=== PATIENT | female | born 1985 | race Caucasian/White ===

== ENCOUNTER 2020-08-28 07:56 | Emergency (ER) | payer OTHER ==
--- NOTE | 2020-08-28 08:41 | ED Physician Documentation ---
History of Present Illness - Stated complaint Stated Complaint: STOMACH PX - Chief complaint Chief Complaint: Abd Pain - History obtained from History obtained from: Patient - Additonal information Additional information: 35yF p/w hematuria, increased frequency a/w suprapubic nonradiating aching constant gradual onset abd pain X 2 days, better with azo pills. denies fevers, back pain, nausea, or other symptoms. LMP 2/9. Review of Systems Ten Systems: 10 systems reviewed and negative Constitutional: denies: Fever, Chills GI: reports: Abdominal Pain : reports: Dysuria, Frequency PD PAST MEDICAL HISTORY - Past Surgical History Past Surgical History: No - Present Medications Home Medications: Ambulatory Orders Medication Instructions Recorded Confirmed Nitrofurantoin Monohyd/M-Cryst 100 mg PO BID 5 Days #10 tab 08/28/20 [Macrobid 100 mg Capsule] - Allergies Allergies/Adverse Reactions: Allergies Allergy/AdvReac Type Severity Reaction Status Date / Time No Known Drug Allergies Allergy Verified 08/28/20 08:11 - Social History Does the pt smoke?: No Smoking Status: Never smoker Does the pt drink ETOH?: Yes Does the pt have substance abuse?: No - Immunizations Immunizations are current?: Yes PD ED PE NORMAL - Vitals Vital signs reviewed: Yes - General General: Alert and oriented X 3, No acute distress, Well developed/nourished - HEENT HEENT: Atraumatic, PERRL, EOMI - Cardiac Cardiac: RRR - Respiratory Respiratory: No respiratory distress, Clear bilaterally - Abdomen Abdomen: Non tender, Non distended, Other (discomfort to suprapubic palpation) - Female Female : Deferred - Rectal Rectal: Deferred - Back Back: No CVA TTP - Derm Derm: Normal color - Extremities Extremities: No deformity - Neuro Neuro: Alert and oriented X 3 Results - Vitals Vitals: Vital Signs - 24 hr 08/28/20 08/28/20 08:07 08:48 Temperature 36.5 C Heart Rate 86 82 Respiratory 15 16 Rate Blood Pressure 120/89 H 129/84 H O2 Saturation 99 99 Oxygen O2 Source Room air PD MEDICAL DECISION MAKING - ED course ED course: 35yF presents with uncomplicated uti. bedside sono performed with mild urinary bladder wall thickening. return precautions given. pt will take abx and f/u with her pmd. Departure - Departure Disposition: 01 Home, Self Care Clinical Impression: UTI (urinary tract infection), Abdominal pain Condition: Good Instructions: ED UTI Cystitis Female Prescriptions: Nitrofurantoin Monohyd/M-Cryst [Macrobid 100 mg Capsule] 100 mg PO BID 5 Days #10 tab Comments: You were seen in the emergency department for UTI. Take antibiotics as prescribed. return for new or worsening symptoms or other concerns. follow up with your primary doctor. Discharge Date/Time: 08/28/20 08:48
[2020-08-28 08:49] VITALS: BP 129/84
== END 2020-08-28 08:48 | disposition home or self-care (01) ==
LOC: ED 07:56
DX: N39.0 Urinary tract infection, site not specified (principal); R31.9 Hematuria, unspecified
CPT/HCPCS: 80053; 81001; 81003; 81025; 83690; 85025; 87086; 99283; 99284

== ENCOUNTER 2021-07-07 21:43 | Emergency (ER) | payer OTHER ==
[2021-07-07 21:52] VITALS: BP 137/90
--- NOTE | 2021-07-07 21:56 | ED Physician Documentation ---
PD HPI URI - Stated complaint Stated Complaint: SORE THROAT,CHILLS,COUGH - Chief complaint Chief Complaint: General - Additional information Additional information: Patient [id number] female presenting with URI symptoms. Sick since last . Cough, congestion, fever chills, sore throat. Reports close contact with an individual who was recently diagnosed with the novel coronavirus. Reports all symptoms have resolved with the exception of her sore throat and upper airway congestion. Review of Systems Ten Systems: 10 systems reviewed and negative Constitutional: reports: Fever, Chills, Fatigue Eyes: denies: Loss of vision Ears: denies: Loss of hearing, Ear pain Nose: reports: Rhinorrhea / runny nose Throat: reports: Sore throat. denies: Dental pain / toothache Cardiac: denies: Chest pain / pressure Respiratory: reports: Cough. denies: Dyspnea GI: denies: Nausea, Vomiting PD PAST MEDICAL HISTORY - Past Surgical History Past Surgical History: No - Present Medications Home Medications: Ambulatory Orders Medication Instructions Recorded Confirmed Nitrofurantoin Monohyd/M-Cryst 100 mg PO BID 5 Days #10 tab 08/28/20 [Macrobid 100 mg Capsule] Levonorgestrel-Ethin Estradiol 07/07/21 [[place]-28 Tablet] - Allergies Allergies/Adverse Reactions: Allergies Allergy/AdvReac Type Severity Reaction Status Date / Time No Known Drug Allergies Allergy Verified 07/07/21 21:56 - Social History Does the pt smoke?: No Smoking Status: Never smoker Does the pt drink ETOH?: Yes Does the pt have substance abuse?: No - Immunizations Immunizations are current?: Yes PD ED PE NORMAL - Vitals Vital signs reviewed: Yes - General General: Alert and oriented X 3 - HEENT HEENT: Atraumatic, PERRL, Ears normal, Moist mucous membranes, Pharynx benign, Dentition benign - Neck Neck: Supple, no meningeal sign, No bony TTP, No JVD, No bruit - Cardiac Cardiac: RRR, No gallop - Respiratory Respiratory: No respiratory distress, Clear bilaterally - Derm Derm: Normal color - Extremities Extremities: No deformity - Neuro Neuro: Alert and oriented X 3, No motor deficit Results - Vitals Vitals: Vital Signs - 24 hr 07/07/21 21:46 Temperature 36.3 C L Heart Rate 70 Respiratory 18 Rate Blood Pressure 137/90 H O2 Saturation 98 Oxygen O2 Source Room air PD MEDICAL DECISION MAKING - ED course ED course: Patient is a 36-year-old female presenting to the emergency department with URI symptoms ongoing x5-6 days. Known contact with individual COVID-positive. Reported full Moderna vaccination earlier in the year. COVID swab taken and pending at this time. Given Decadron for pharyngitis. Encouraged ongoing quarantine per CDC guidelines. Encourage careful follow-up with primary care return to the emergency department as needed. Departure - Departure Disposition: Home, Self Care Clinical Impression: URI (upper respiratory infection), Exposure to COVID-19 virus Instructions: ED URI Viral Comments: Thank you for allowing us to care for today at [facility]. The COVID swab obtained today will take a few days to results. To be contacted with these results as soon as possible. Please stay well-hydrated and get plenty of rest. The medications you have been using at home including Motrin, Tylenol, Cepacol are excellent to help with your symptoms. Please do follow-up with your primary care doctor soon as you are able. If it anytime you have any new or worsening symptoms please not hesitate to return to the emergency department.
[2021-07-07] MEDS ORDERED: CHERRY SYRUP 10 ML UDC PO ONE (22:06)
[2021-07-07] MEDS ORDERED: DEXAMETHASONE 10 MG/ML VIAL PO STA (22:06)
== END 2021-07-07 22:26 | disposition home or self-care (01) ==
LOC: ED 21:43
DX: U07.1 COVID-19 (principal); J06.9 Acute upper respiratory infection, unspecified
CPT/HCPCS: 87275; 87276; 87635; 99282; 99283; A9270

== ENCOUNTER 2021-10-21 09:01 | Day surgery (SDC) | payer OTHER ==
[2021-10-21] MEDS ORDERED: CEFAZOLIN SODIUM IN 0.9 % NACL 2 GM/50 ML BAG IV ONE (09:13)
[2021-10-21 09:22] LABS: HCG UR QUAL NEGATIVE
[2021-10-21] MEDS ORDERED: LACTATED RINGERS 1,000 ML IV ONE ×2 (09:30→11:59)
--- NOTE | 2021-10-21 09:45 | ANESTHESIA ---
Pre-Anesthesia VS, & Labs - Diagnosis pelvic wall mass or hernia - Procedure Excision Pelvic wall mass Vital Signs: Temp Pulse Resp BP Pulse Ox 36.9 C 78 20 135/82 H 98 10/21/21 09:11 10/21/21 09:11 10/21/21 09:11 10/21/21 09:11 10/21/21 09:11 Height: 5 ft 5 in Weight (kg): 61 kg Body Mass Index: 22.4 BMI Classification: Healthy weight - NPO >8 hours - Is Patient ?: No - Lab Results Lab results reviewed: No Home Medications and Allergies Home Medications: Ambulatory Orders Doxycycline Hyclate 100 mg PO DAILY 09/24/21 Levonorgestrel-Ethin Estradiol [[place]-28 Tablet] 1 tab PO DAILY 07/07/21 Doxycycline Hyclate 100 mg PO DAILY 09/24/21 Allergies/Adverse Reactions: Allergies Allergy/AdvReac Type Severity Reaction Status Date / Time No Known Drug Allergies Allergy Verified 07/07/21 21:56 Anes History & Medical History - Anesthetic History Anesthesia Complications: reports: No previous complications Family history of Anesthesia Complications: Denies Family history of Malignant Hyperthermia: Denies - Medical History Cardiovascular: reports: None Pulmonary: reports: None Gastrointestinal: reports: None Urinary: reports: None Musculoskeletal: reports: None Endocrine/Autoimmune: reports: None Skin: reports: Rosacea Smoking Status: Never smoker Exam General: Alert, Oriented x3, Cooperative, No acute distress Dental: WNL Mouth Openin Fingerbreadth Neck Mobility: Normal Mallampati classification: II Plan Anesthesia Type: General Consent for Procedure(s) Verified and Reviewed: Yes Code Status: Attempt Resuscitation ASA classification: 1-Healthy patient Is this case an emergency?: No
[2021-10-21] MEDS ORDERED: METOCLOPRAMIDE 10 MG/2 ML VIAL IVP PRN (09:49)
[2021-10-21] MEDS ORDERED: ePHEDrine 50 MG/ML VIAL IVP PRN (09:49)
[2021-10-21] MEDS ORDERED: NALOXONE 0.4 MG/ML VIAL IVP PRN (09:49)
[2021-10-21] MEDS ORDERED: MORPHINE 2 MG/ML CARPUJECT IVP PRN (09:49)
[2021-10-21] MEDS ORDERED: ATROPINE ABBOJECT 1 MG/10 ML SYRINGE IVP PRN (09:49)
[2021-10-21] MEDS ORDERED: fentaNYL 100 MCG/2 ML VIAL IVP PRN (09:49)
[2021-10-21] MEDS ORDERED: HYDROmorphone 0.5 MG/0.5 ML SYRINGE IVP PRN (09:49)
[2021-10-21] MEDS ORDERED: ONDANSETRON 4 MG/2 ML VIAL IVP PRN (09:49)
[2021-10-21] MEDS ORDERED: BUPIVACAINE 0.25% PF 30 ML VIAL ONE (09:53)
[2021-10-21] MEDS ORDERED: LIDOCAINE 2%-EPI 1:100000 20 ML MDV ONE (09:54)
[2021-10-21] MEDS ORDERED: LACTATED RINGERS 1,000 ML IV SCH (10:00)
[2021-10-21] MEDS ORDERED: fentaNYL 100 MCG/2 ML VIAL ONE (10:19)
[2021-10-21] MEDS ORDERED: LIDOCAINE-MPF 2% 5 ML VIAL ONE (10:19)
[2021-10-21] MEDS ORDERED: PROPOFOL 200 MG/20 ML VIAL IVP ONE (10:19)
[2021-10-21] MEDS ORDERED: MIDAZOLAM 2 MG/2 ML VIAL ONE (10:19)
[2021-10-21] MEDS ORDERED: DEXAMETHASONE 4 MG/ML VIAL ONE (11:10)
[2021-10-21] MEDS ORDERED: KETOROLAC 30 MG/ML VIAL ONE (11:10)
[2021-10-21] MEDS ORDERED: ONDANSETRON 4 MG/2 ML VIAL ONE (11:10)
[2021-10-21] MEDS ORDERED: BUPIVACAINE 0.25% PF 30 ML VIAL SUBQ ONE (11:13)
[2021-10-21] MEDS ORDERED: LIDOCAINE 1%-EPI 1:100000 20 ML MDV SUBQ ONE (11:14)
--- NOTE | 2021-10-21 11:36 | OPERATIVE REPORT ---
Operative Report - General Procedure Date: 10/21/21 Planned Procedure: Excision of abdominal/pelvic wall mass Pre-Op Diagnosis: Abdominal wall mass Procedure Performed: Excision of abdominal/pelvic wall mass Post Op Diagnosis: Painful abdominal wall mass - Procedure Note Primary Surgeon: Kendall Anesthesia Provider: BYRON Seth Pathology: Mass and surrounding tissue to pathology in formalin IV Fluids (mL): 300 Estimated Blood Loss (mL): 5 Findings: Well-circumscribed nodule within the subcutaneous adipose tissue. Complications: None apparent - Other Other Information/Narrative: After obtaining informed consent, the patient is brought to the operating room and placed in supine position on the operating table. Following successful induction of general anesthesia, appropriate padding of all bony prominences, and placement of appropriate monitors, the abdomen was prepped and draped in the standard surgical fashion. A timeout was held per scope protocol. All elements of the surgical safety checklist were followed before, during, and after the procedure. A skin marker was used to indicate the area directly over the mass. A vertical incision was then created here after infiltration with local anesthetic. This was carried through the skin subcutaneous tissue. The mass was palpated within the subcutaneous tissue, still within the fat plane of the abdominal wall. It was not adherent to the underlying fascia or overlying dermis. The lesion and surrounding tissue were then removed in total and passed from the table. The wound was checked for hemostasis. It was closed in 2 layers with Vicryl and Monocryl suture. All sponge, needle, and instrument counts were correct at the conclusion of the case. The patient was allowed to wake from anesthesia without difficulty and taken to the postanesthesia care unit in good condition.
[2021-10-21 12:38] VITALS: BP 120/78
--- NOTE | 2021-10-21 13:45 | ANESTHESIA POST OP EVALUATION ---
Anesthesia Post Eval - Post Anesthesia Eval Vitals: Last Vital Signs Temp 36.3 C L 10/21/21 12:35 Pulse 63 10/21/21 12:35 Resp 16 10/21/21 12:35 BP 120/78 10/21/21 12:35 Pulse Ox 100 10/21/21 12:35 CV Function Including HR & BP: Stable Pain Control: Satisfactory Nausea & Vomiting: Negative Mental Status: Baseline Respiratory Status: Airway Patent Hydration Status: Satisfactory Anesthesia Complications: None
== END 2021-10-21 09:02 | disposition home or self-care (01) ==
LOC: SDS 09:01
PROVIDERS: ATTEND Surgery
PROC: 0JB80ZZ Excision of Abdomen Subcutaneous Tissue and Fascia, Open Approach (ICD-10-PCS; principal; 2021-10-21 10:15)
DX: R19.00 Intra-abdominal and pelvic swelling, mass and lump, unspecified site (principal); Z32.02 Encounter for pregnancy test, result negative
CPT/HCPCS: 22902; 81025; J0690; J7120

== ENCOUNTER 2022-10-21 07:20 | Outpatient (CLI) | payer OTHER ==
--- NOTE | 2022-10-22 09:59 | MRI Report ---
PROCEDURE: HAND WO - RT INDICATIONS: PAIN IN RIGHT HAND TECHNIQUE: Noncontrast coronal T1 spin echo and T2 fast spin echo with fat saturation, axial proton density fast spin echo and T2 fast spin echo with fat saturation, sagittal T1 spin echo and STIR through the hand and fingers. COMPARISON: None. FINDINGS: Image quality: Excellent. Bones: The bones are normally aligned, without marrow contusions or fractures. No intra-osseous les ions. Interphalangeal joint(s): The accessory and proper collateral ligaments appear intact. The volar pl ate demonstrates normal morphology. The extensor central slips appear intact on sagittal images. Metacarpophalangeal joint(s): The accessory and proper collateral ligaments appear intact, as well a s the volar plate and adjacent deep transverse metacarpal ligaments. The sagittal bands of the exten sor frausto appear normal. Extensor apparatus: The central slips insert normally on the middle phalangeal base. The conjoint a nd terminal tendons insert normally on the distal phalangeal bases. More proximal portions of the ex tensor tendons also appear normal. Flexor apparatus: The flexor digitorum superficialis and profundus tendons both appear intact. All annular and cruciform pulleys appear intact, without adjacent soft tissue edema. Soft tissues: Visualized muscles demonstrate normal bulk and internal signal. No intramuscular mass es identified. There is suggestion of a ganglion cyst over volar aspect of radial styloid/proximal sc aphoid and measures up to 1.1 x 0.6 x 0.8 cm in size. 4 x 5 mm possible ganglion cyst over radial asp ect of third metacarpal neck is also seen. IMPRESSION: 1. Small ganglion cyst over volar aspect of radial styloid as above. 4 x 5 mm possible ganglion cyst over radial aspect of third metacarpal neck. 2. No muscle or tendon signal abnormalities. 3. No marrow edema. No fracture or dislocation. No suspicious bony lesions. 4. Collateral ligaments of MCP joints and interphalangeal joints are grossly intact. Reviewed by: Clayton Mae MD on 10/22/2022 9:58 AM PDT Approved by: Clayton Mae MD on 10/22/2022 9:58 AM PDT Station ID: [id number]
== END 2022-10-21 07:21 | disposition home or self-care (01) ==
LOC: DI 07:20
DX: M67.441 Ganglion, right hand (principal)